=== PATIENT | female | born 1940 | race Hispanic/Latino ===

== ENCOUNTER 2017-04-25 14:33 | Outpatient (CLI) | payer MEDICARE ==
--- NOTE | 2017-04-25 15:27 | Mammography Report ---
BILATERAL MAMMOGRAM with CAD: HISTORY:Cancer screening. Comparison study is dated April 21, 2016. FINDINGS: The breasts are almost entirely fat (<25% glandular). No mass, distortion, suspicious calcification, or skin change is seen. IMPRESSION: Negative mammogram. There is no mammographic evidence of malignancy. RECOMMENDATION: Follow-up per ACS guidelines. BI-RADS CATEGORY: 1 = Negative ACR BI-RADS MAMMOGRAPHIC CODES: 0 = Needs additional imaging evaluation; 1 = Negative; 2 = Benign; 3 = Probably benign; 4 = Suspicious; 5 = Malignant; 6 = Known biopsy-proven malignancy COMMENT: 1. Dense breast tissue, i.e., adenosis, fibrocystic changes, etc., may obscure an underlying neoplasm. 2. Approximately 10% of cancers are not detected with mammography. 3. A negative mammography report should not delay biopsy if a clinically suspicious mass is present. COMMENT: Patient follow-up letters are generated in [employer].
== END 2017-04-25 14:34 | disposition home or self-care (01) ==
LOC: MAMMO 14:33
PROVIDERS: ATTEND Internal Medicine
DX: Z12.31 Encounter for screening mammogram for malignant neoplasm of breast (principal)
CPT/HCPCS: 77067; G0202

== ENCOUNTER 2017-11-30 10:21 | Day surgery (SDC) | payer MEDICARE ==
[2017-11-30] MEDS ORDERED: ANCEF/STERILE WATER 2 GM/20 ML 2 GM/20 ML SYRINGE IV NR (11:00)
[2017-11-30] MEDS ORDERED: LACTATED RINGERS 1,000 ML IV SCH (12:00)
--- NOTE | 2017-11-30 12:09 | Anesthesia Day of Surgery ---
Anesthesia Day of Surgery - Day of Surgery Patient Examined: Yes Patient H&P Reviewed: Yes Patient is NPO: Yes
--- NOTE | 2017-11-30 12:09 | Anesthesia Consultation ---
Anesthesia Consult and Med Hx Date of service: 11/30/17 - Airway Anesthetic Teeth Evaluation: Partials ROM Head & Neck: Adequate Mental/Hyoid Distance: Adequate Mallampati Class: Class II Intubation Access Assessment: Probably Good - Pulmonary Exam CTA: Yes - Cardiac Exam Cardiac Exam: RRR - Pre-Operative Health Status ASA Pre-Surgery Classification: ASA3 Proposed Anesthetic Plan: General - Pulmonary Hx Smoking: No Hx Sleep Apnea: No (PUNEET PRE SCREEN LOW RISK) - Cardiovascular System Hx Hypertension: Yes (X 20 YRS) - Other Systems Hx Cancer: No
[2017-11-30] MEDS ORDERED: DILAUDID IV PRN (12:10)
[2017-11-30] MEDS ORDERED: ZOFRAN IV PRN (12:10)
[2017-11-30] MEDS ORDERED: DIPRIVAN 10 MG/ML IV ONE (12:18)
[2017-11-30] MEDS ORDERED: SUBLIMAZE ONE (12:18)
[2017-11-30] MEDS ORDERED: XYLOCAINE MPF 2% ONE (12:18)
[2017-11-30] MEDS ORDERED: ZOFRAN ONE (12:30)
[2017-11-30] MEDS ORDERED: NEO SYNEPHRINE/NS Syringe(OR USE) IV ONE (12:30)
[2017-11-30] MEDS ORDERED: OMNIPAQUE 300 MG/50 ML (CATH LAB) IV ONE (12:58)
[2017-11-30] MEDS ORDERED: WATER FOR IRRIG STERILE IR ONE (12:58)
--- NOTE | 2017-11-30 13:31 | Post Operative Note ---
Date of procedure: 11/30/17 Pre-op diagnosis: hematuria Findings: unremarkable Procedure: cysto rpgs Anesthesia: GETA Surgeon: HIPOLITO NICOLAS Estimated blood loss: none Pathology: none Condition: stable Disposition: PACU
--- NOTE | 2017-11-30 13:32 | Discharge Summary ---
Short Stay Discharge Plan Activity: other (no straining ) Weight Bearing Status: Full Weight Bearing Diet: regular, low fat, low cholesterol, low salt Special Instructions: other (inc fluids ) Follow up with: CLARICE DE DIOS MD [Primary Care Provider] - 7 Days HIPOLITO NICOLAS MD [Staff Physician] - 14 Days
--- NOTE | 2017-11-30 13:44 | Operative Report ---
PREOPERATIVE DIAGNOSIS: Hematuria. POSTOPERATIVE DIAGNOSES: Hematuria. PROCEDURE: Cystoscopy, retrograde. SURGEON: Gerardo Ma MD ANESTHESIA: General. FINDINGS: This is a woman who says she is seeing some hematuria, some was on the tissue. She now presents for cystoscopy. DESCRIPTION OF PROCEDURE: The patient was brought to the operating room and placed on the operating table. Following induction of anesthesia, placed in lithotomy position, prepped and draped in usual sterile fashion. Cystourethroscopy showed a normal urethra and normal bladder. The bladder was well visualized with 30 and 70 degree lenses. At this point, retrograde showed good filling, good drainage with few air bubbles more on the right side. These drained on fluoroscopy. There were no persistent filling defects. There were no bladder lesions. No biopsies were required during the procedure well. Bimanual exam showed no masses. She tolerated the procedure well and brought to recovery in stable condition. JOB# [id number] HELIO/RASHARD
--- NOTE | 2017-11-30 16:53 | Post Anesthesia Evaluation ---
- Post Anesthesia Evaluation Patient Participated: Yes Airway Patent: Yes Stable Respiratory Function: Yes Nausea/Vomiting: No Temp > 96.8F: Yes Pain Manageable: Yes Adequeate Hydration: Yes Anesthesia Complications: No Block Receding Appropriately: Not Applicable Patient on Ventilator: No
[2017-11-30 17:43] VITALS: BP 141/96
--- NOTE | 2017-12-01 07:16 | Fluoroscopy Report ---
FLUOROSCOPY RETROGRADE UROGRAPHY: HISTORY: Hematuria. FINDINGS: Fluoroscopy was provided by radiology during retrograde urography by the urologist. 7 fluoroscopic images were captured. There is adequate filling of the ureters and intrarenal collecting systems with no filling defects or anatomic abnormalities identified. Please correlate with the procedural report if needed. IMPRESSION: Retrograde pyelograms within normal limits.
== END 2017-11-30 16:10 | disposition home or self-care (01) ==
LOC: OR 10:21
PROVIDERS: ATTEND Urology
DX: R31.0 Gross hematuria (principal); I10 Essential (primary) hypertension; Z88.5 Allergy status to narcotic agent; Z88.8 Allergy status to other drugs, medicaments and biological substances
CPT/HCPCS: 52005; 74420; A4217; C1758; J0690; J2370; J2405; J2704; J3010; J7120; Q9967

== ENCOUNTER 2019-04-27 11:13 | Outpatient (CLI) | payer MEDICARE ==
--- NOTE | 2019-04-30 14:40 | Mammography Report ---
DIGITAL SCREENING MAMMOGRAM WITH CAD, 04/27/2019 INDICATION: Routine screening mammography. TECHNIQUE: Digital bilateral 2D mammography was obtained in the craniocaudal and mediolateral obliq ue projections. This examination was interpreted with the benefit of Computer-Aided Detection analysi s. COMPARISON: 04/26/2018 FINDINGS: Breast Density: There are scattered areas of fibroglandular density. A right asymmetry on the CC view requires additional imaging. No architectural distortion or suspicio us calcifications of the right breast. There is no evidence of dominant mass, suspicious calcificatio ns or architectural distortion in the left breast. IMPRESSION: Right asymmetry requiring additional imaging. Recommend recall for right lateral, rolled CC and spot compression CC views and right breast ultrasound if needed. Follow up recommendation: Routine yearly Category 0: Incomplete. Needs additional imaging evaluation and/or prior mammograms for comparison. A "normal" or negative report should not discourage follow up or biopsy of a clinically significant f inding. A written summary of these findings will be mailed to the patient. The patient will be entered into a mammography reporting system which will generate a reminder letter for the patient's next appointmen t at the appropriate interval. The [employer] recommends yearly mammograms starting at age 40 and continuing as l jayjay as a woman is in good health. Breast MRI is recommended for women with an approximate 20-25% or greater lifetime risk of breast cancer, including women with a strong family history of breast or ova fer cancer or who have been treated for Hodgkin's disease. Signer Name: Henok Mueller MD Signed: 04/30/2019 2:35 PM Workstation Name: [id number]
== END 2019-04-27 11:14 | disposition home or self-care (01) ==
LOC: MAMMO 11:13
PROVIDERS: ATTEND Internal Medicine
DX: Z12.31 Encounter for screening mammogram for malignant neoplasm of breast (principal)
CPT/HCPCS: 77067

== ENCOUNTER 2019-05-14 09:34 | Outpatient (CLI) | payer MEDICARE ==
--- NOTE | 2019-05-14 12:09 | Mammography Report ---
RIGHT DIGITAL DIAGNOSTIC MAMMOGRAM WITH CAD 05/14/2019 RIGHT LIMITED BREAST ULTRASOUND INDICATION: ABN MAMMO. Recall to evaluate a mammographic asymmetry. TECHNIQUE: Digital right mammographic imaging was performed. Spot compression views were obtained. L ateral and rolled CC views were also obtained. Limited ultrasound was performed. This examination was interpreted with the benefit of Computer-Aided Detection (CAD) analysis. COMPARISON: 04/27/2019 FINDINGS: Breast Density: There are scattered areas of fibroglandular density. MAMMOGRAPHIC FINDINGS: Asymmetries with partial effacement persists. ULTRASOUND FINDINGS: Targeted ultrasound evaluation was performed of the area of interest. Ultrasou nd of the upper breast was performed from 9:00 to 3:00 and demonstrated normal fibroglandular structu res in normal fatty structures with no mass, cyst or suspicious shadowing. IMPRESSION: Benign asymmetric fibroglandular structures with no suspicious finding. Recommend routine mammographic screening. Follow up recommendation: Routine yearly BI-RADS Category 2: Benign. A "normal" or negative report should not discourage follow up or biopsy of a clinically significant f inding. A written summary of these findings will be mailed to the patient. The patient will be entered into a mammography reporting system which will generate a reminder letter for the patient's next appointmen t at the appropriate interval. According to the [employer], yearly mammograms are recommended starting at age 40 and continuing as long as a woman is in good health. Breast MRI is recommended for women with an ryley roximately 20-25% or greater lifetime risk of breast cancer, including women with a strong family his tory of breast or ovarian cancer and women who have been treated for Hodgkin's disease. Signer Name: Henok Mueller MD Signed: 05/14/2019 12:05 PM Workstation Name: [id number]
== END 2019-05-14 09:35 | disposition home or self-care (01) ==
LOC: MAMMO 09:34
PROVIDERS: ATTEND Internal Medicine
DX: R92.8 Other abnormal and inconclusive findings on diagnostic imaging of breast (principal)

== ENCOUNTER 2020-04-28 10:41 | Outpatient (CLI) | payer MEDICARE ==
--- NOTE | 2020-04-28 16:32 | Mammography Report ---
DIGITAL SCREENING MAMMOGRAM WITH CAD, 04/28/2020 CLINICAL INFORMATION / INDICATION: Routine screening mammography. SCREENING MAMMO TECHNIQUE: Digital bilateral 2D mammography was obtained in the craniocaudal and mediolateral obliqu e projections. This examination was interpreted with the benefit of Computer-Aided Detection analysis . COMPARISON: Prior mammograms 04/27/2019 and 04/26/2018 FINDINGS: Breast Density: There are scattered areas of fibroglandular density. No dominant mass, suspicious calcifications, or architectural distortion in either breast. There is a stable asymmetric density in the right breast and stable benign-appearing calcifications i n the left breast. There has been no significant change compared with the prior examinations. IMPRESSION: No mammographic evidence of malignancy. Follow up recommendation: Routine yearly BI-RADS Category 2: Benign. A "normal" or negative report should not discourage follow up or biopsy of a clinically significant f inding. A written summary of these findings will be mailed to the patient. The patient will be entered into a mammography reporting system which will generate a reminder letter for the patient's next appointmen t at the appropriate interval. The [employer] recommends yearly mammograms starting at age 40 and continuing as l jayjay as a woman is in good health. Breast MRI is recommended for women with an approximate 20-25% or greater lifetime risk of breast cancer, including women with a strong family history of breast or ova fer cancer or who have been treated for Hodgkin's disease. Signer Name: Jessica Love MD Signed: 04/28/2020 4:27 PM Workstation Name: [id number]
== END 2020-04-28 10:42 | disposition home or self-care (01) ==
LOC: MAMMO 10:41
PROVIDERS: ATTEND Internal Medicine
DX: Z12.31 Encounter for screening mammogram for malignant neoplasm of breast (principal)
CPT/HCPCS: 77067

== ENCOUNTER 2021-04-29 11:20 | Outpatient (CLI) | payer MEDICARE ==
--- NOTE | 2021-04-30 16:31 | Mammography Report ---
DIGITAL SCREENING MAMMOGRAM WITH TOMOSYNTHESIS WITH CAD, 04/29/2021 CLINICAL INFORMATION / INDICATION: Routine Screening Mammography. TECHNIQUE: Digital bilateral 2D and 3D mammography with tomosynthesis was obtained in the craniocaud al and mediolateral oblique projections. Computer-Aided Detection (CAD) analysis was used for interp retation of this study. COMPARISON: 04/28/2020 FINDINGS: Breast Density: There are scattered areas of fibroglandular density. No dominant mass, suspicious calcifications, or architectural distortion in either breast. Stable density in the right breast. IMPRESSION: No mammographic evidence of malignancy. Follow up recommendation: Routine yearly BI-RADS Category 2: Benign. A "normal" or negative report should not discourage follow up or biopsy of a clinically significant f inding. A written summary of these findings will be mailed to the patient. The patient will be entered into a mammography reporting system which will generate a reminder letter for the patient's next appointmen t at the appropriate interval. The [employer] recommends yearly mammograms starting at age 40 and continuing as l jayjay as a woman is in good health. Breast MRI is recommended for women with an approximate 20-25% or greater lifetime risk of breast cancer, including women with a strong family history of breast or ova fer cancer or who have been treated for Hodgkin's disease. Signer Name: Jhonatan Keith MD Signed: 04/30/2021 4:26 PM Workstation Name: [id number]
== END 2021-04-29 11:21 | disposition home or self-care (01) ==
LOC: MAMMO 11:20
PROVIDERS: ATTEND Internal Medicine
DX: Z12.31 Encounter for screening mammogram for malignant neoplasm of breast (principal)
CPT/HCPCS: 77067